=== PATIENT | male | born 1980 | race Caucasian/White ===

== ENCOUNTER 2023-10-24 12:15 | Emergency (ER) | payer OTHER ==
[~2023-10-24] VITALS: Ht 172.7 cm; Wt 91.0 kg
[2023-10-24 12:24] VITALS: O2SAT 99
[2023-10-24 13:35] VITALS: BP 129/93; PULSE 76; RESP 18; TEMP 98.2
== END 2023-10-24 13:40 | disposition home or self-care (01) ==
LOC: ER 12:53
DX: I83.892 Varicose veins of left lower extremity with other complications (principal)
CPT/HCPCS: 99283